=== PATIENT | male | born 1950 | race Caucasian/White ===

== ENCOUNTER 2016-12-29 06:35 | Day surgery (SDC) | payer MEDICARE, BC ==
[2016-12-29] VITALS (24 sets, daily range): BP systolic 97–126; BP diastolic 53–68; PULSE 55–77; TEMP 97.3
[~2016-12-29] VITALS: Ht 175.3 cm; Wt 78.4 kg
[~2016-12-29 06:35] MED LIST: ASPIR-LOW81 MG PO; ASPIRIN 32325 MG/TAB PO; ASPIRIN E.C. 8181 MG PO; B COMPLEX #11 TA1 PO; CARAFATE 1GM1 G PO; CLOPIDOGREL PO; CO ENZYME Q-1050 MG PO; COMPAZINE 110 MG/TAB PO; CRESTOR20 MG PO; FISH OIL1 IU PO; GAS-X80 MG PO; GEMFIBROZIL600 MG PO; GLUCOPHAGE500 MG/TAB PO; GLUCOSAMINE 1000 PO; IMDUR 30MG30 MG/TAB PO; JANUMET 1000 MG1 TA1 PO; JANUMXR1000-50 PO; LEVAQUIN 750MG750 M1 PO; LISINOPRIL10 MG PO; LOPID 600M600 MG/TAB PO; MASON NATURAL1000 MG PO; METFORMIN500 MG PO; NIASPAN500 MG PO; PERCOCET 325 MG1 TA2 PO; PRILOSEC 20MG20 MG PO; PRINIVIL10 MG PO; RESTORE PO; THE MEDICINE S200 M2 PO; TOPROL XL 25MG25 MG PO; TOPROL XL50 MG PO; XELODA500 MG PO; ZOCOR40 MG PO; blood pressure med
[2016-12-29] MEDS ORDERED: [UNRECOGNIZED DRUG - OTHER] PO (07:55)
[2016-12-29] MEDS ORDERED: OCUVITE1 TA1 PO (07:55)
[2016-12-29] MEDS ORDERED: B COMPLEX #11 TAB PO (07:56)
[2016-12-29] MEDS ORDERED: ZOCOR 20MG20 MG PO (07:56)
== END 2016-12-29 17:15 | disposition home or self-care (01) ==
LOC: SDCO 06:35
DX: N13.5 Crossing vessel and stricture of ureter without hydronephrosis (principal); I25.10 Atherosclerotic heart disease of native coronary artery without angina pectoris; Z85.038 Personal history of other malignant neoplasm of large intestine
CPT/HCPCS: C1769; C1887; C2617; J0690; J1100; J1885; J2250; J2270; J2405; J2704; J3010; J7030; Q9967

== ENCOUNTER 2017-01-03 12:21 | Outpatient (CLI) | payer MEDICARE, BC ==
[~2017-01-03 12:21] MED LIST changes: +B COMPLEX #11 TAB PO; +OCUVITE1 TA1 PO; +ZOCOR 20MG20 MG PO; +[UNRECOGNIZED DRUG - OTHER] PO
[2017-01-03] MEDS ORDERED: PERCOCET 325 MG1 TA3 PO (13:26)
[2017-01-03] MEDS ORDERED: PRINIVIL10 MG PO (13:32)
[2017-01-03] MEDS ORDERED: CRESTOR20 MG PO (13:34)
[2017-01-03] MEDS ORDERED: LOPID 600M600 MG/TAB PO (13:35)
[2017-01-03 14:37] LABS: MEAN CELL VOLUME 89 fl (80.0-100.0); MEAN CORPUSCULAR HGB CONC 33 g/dl (33.0-37.0); MEAN PLATELET VOLUME 9.8 fl (7.4-10.4); PLATELET COUNT 278 K/mm3 (130-400); RED BLOOD COUNT 4.09 M/mm3 (4.20-5.60); REDCELL DISTRIBUTION WIDTH-CV 15.8 % (11.5-14.5); WHITE BLOOD COUNT 3.8 K/mm3 (4.8-10.8)
[2017-01-03 14:38] LABS: INR 1.1 (0.8-3.0); PROTHROMBIN TIME 11.9 SECONDS (9.7-12.8)
[2017-01-03 14:42] LABS: CALCIUM 8.9 mg/dL (8.4-10.2); CREATININE, serum 0.5 mg/dL (0.66-1.25); POTASSIUM 3.5 mmol/L (3.4-5.0)
[2017-01-03 14:43] LABS: HEMATOCRIT 36.3 % (42.0-52.0); HEMOGLOBIN 11.9 g/dl (13.5-18.0); MEAN CORPUSCULAR HEMOGLOBIN 29 pg (27.0-31.0)
[2017-01-03 17:10] VITALS: BP 123/69; PULSE 66
[2017-01-03 19:17] VITALS: BP 120/70; PULSE 62
== END 2017-01-03 19:26 | disposition home or self-care (01) ==
LOC: EUO 12:21
PROVIDERS: Radiology Diagnostic Radiology
DX: Z46.6 Encounter for fitting and adjustment of urinary device (principal); N13.1 Hydronephrosis with ureteral stricture, not elsewhere classified
CPT/HCPCS: C1729; C1769; C1894; J0690; J2250; J3010; J7030; Q9967

== ENCOUNTER 2017-01-11 05:23 | Day surgery (SDC) | payer MEDICARE, BC ==
[~2017-01-11] VITALS: Ht 175.3 cm; Wt 78.3 kg
[2017-01-11] VITALS (8 sets, daily range): BP systolic 107–139; BP diastolic 53–67; PULSE 65–73; TEMP 98–98.2
[~2017-01-11 05:23] MED LIST changes: +PERCOCET 325 MG1 TA3 PO
[2017-01-11] MEDS ORDERED: CIPRO 500MG TA500 MG PO (06:48)
[2017-01-11] MEDS ORDERED: LEVSIN 0.10.125 MG/T PO (06:50)
[2017-01-11] MEDS ORDERED: THE MEDICINE S200 M2 PO (06:53)
[2017-01-11] MEDS ORDERED: ZOCOR 20MG20 MG PO (06:56)
[2017-01-11] MEDS ORDERED: [UNRECOGNIZED DRUG - OTHER] PO (06:58)
[2017-01-11] MEDS ORDERED: PRILOSEC 20MG20 MG PO (07:01)
[2017-01-11] MEDS ORDERED: MAGNESIUM250 M1 PO (07:05)
[2017-01-11] MEDS ORDERED: GENTLE LAXATIVE5 MG PO (07:06)
[2017-01-11] MEDS ORDERED: DOXYCYCLINE HY100 MG PO (07:06)
[2017-01-11] MEDS ORDERED: TUMS ULTRA ST1000 MG PO (07:07)
[2017-01-11] MEDS ORDERED: STOOL SOFTENER100 M2 PO (07:07)
== END 2017-01-11 11:28 | disposition home or self-care (01) ==
LOC: SDCO 05:23
DX: N13.5 Crossing vessel and stricture of ureter without hydronephrosis (principal); Z85.46 Personal history of malignant neoplasm of prostate; Z85.038 Personal history of other malignant neoplasm of large intestine; E11.42 Type 2 diabetes mellitus with diabetic polyneuropathy; E78.00 Pure hypercholesterolemia, unspecified; I25.10 Atherosclerotic heart disease of native coronary artery without angina pectoris
CPT/HCPCS: C1726; C1769; C2617; J0690; J1100; J2270; J2405; J2704; J3010; J7030; Q9967

== ENCOUNTER 2017-01-17 08:40 | Day surgery (SDC) | payer MEDICARE, BC ==
[~2017-01-17] VITALS: Ht 175.4 cm; Wt 77.3 kg
[~2017-01-17 08:40] MED LIST changes: +CIPRO 500MG TA500 MG PO; +DOXYCYCLINE HY100 MG PO; +GENTLE LAXATIVE5 MG PO; +LEVSIN 0.10.125 MG/T PO; +MAGNESIUM250 M1 PO; +STOOL SOFTENER100 M2 PO; +TUMS ULTRA ST1000 MG PO
[2017-01-17 10:45] VITALS: BP 116/51; PULSE 69; TEMP 97.5
[2017-01-17 12:22] VITALS: BP 118/81; PULSE 69; TEMP 98.3
== END 2017-01-17 13:29 | disposition home or self-care (01) ==
LOC: COL.CAR 08:40
DX: N13.1 Hydronephrosis with ureteral stricture, not elsewhere classified (principal); Z85.038 Personal history of other malignant neoplasm of large intestine
CPT/HCPCS: J1644

== ENCOUNTER 2017-05-16 11:51 | Day surgery (SDC) | payer MEDICARE, BC ==
[~2017-05-16] VITALS: Ht 175.3 cm; Wt 69.6 kg
[2017-05-16 12:17] VITALS: BP 125/65; PULSE 68; TEMP 97.7
[2017-05-16] MEDS ORDERED: MYRBETR50MG PO (12:21)
[2017-05-16] MEDS ORDERED: VESICARE10 MG PO (12:21)
[2017-05-16] MEDS ORDERED: ADRUCIL50 MG/ML IV (13:05)
== END 2017-05-16 14:45 | disposition home or self-care (01) ==
LOC: SDCO 11:51
DX: N13.1 Hydronephrosis with ureteral stricture, not elsewhere classified (principal); I25.10 Atherosclerotic heart disease of native coronary artery without angina pectoris; E78.00 Pure hypercholesterolemia, unspecified; I10 Essential (primary) hypertension; E11.42 Type 2 diabetes mellitus with diabetic polyneuropathy; K21.9 Gastro-esophageal reflux disease without esophagitis; C18.9 Malignant neoplasm of colon, unspecified; Z53.8 Procedure and treatment not carried out for other reasons; Z79.84 Long term (current) use of oral hypoglycemic drugs; Z95.5 Presence of coronary angioplasty implant and graft; Z96.0 Presence of urogenital implants; Z90.79 Acquired absence of other genital organ(s); Z85.46 Personal history of malignant neoplasm of prostate; Z82.49 Family history of ischemic heart disease and other diseases of the circulatory system
CPT/HCPCS: J0690; J1100; J1885; J2405; J2704; J3010; J7030

== ENCOUNTER 2017-05-23 11:54 | Day surgery (SDC) | payer MEDICARE, BC ==
[~2017-05-23] VITALS: Ht 175.3 cm; Wt 69.5 kg
[~2017-05-23 11:54] MED LIST changes: +ADRUCIL50 MG/ML IV; +MYRBETR50MG PO; +VESICARE10 MG PO
[2017-05-23 13:29] VITALS: BP 135/74; PULSE 73; TEMP 98.2
[2017-05-23 16:10] VITALS: BP 115/80; PULSE 73; TEMP 98
[2017-05-23 16:25] VITALS: BP 128/77; PULSE 75
[2017-05-23 16:40] VITALS: BP 115/86; PULSE 74
== END 2017-05-23 17:11 | disposition home or self-care (01) ==
LOC: SDCO 11:54
DX: N13.1 Hydronephrosis with ureteral stricture, not elsewhere classified (principal); I25.10 Atherosclerotic heart disease of native coronary artery without angina pectoris; C18.9 Malignant neoplasm of colon, unspecified; E78.00 Pure hypercholesterolemia, unspecified; I10 Essential (primary) hypertension; K21.9 Gastro-esophageal reflux disease without esophagitis; E11.42 Type 2 diabetes mellitus with diabetic polyneuropathy; Z95.5 Presence of coronary angioplasty implant and graft; Z90.79 Acquired absence of other genital organ(s); Z79.84 Long term (current) use of oral hypoglycemic drugs; Z85.46 Personal history of malignant neoplasm of prostate; Z83.511 Family history of glaucoma; Z82.49 Family history of ischemic heart disease and other diseases of the circulatory system
CPT/HCPCS: C1769; C2617; J0690; J1100; J2405; J2704; J3010; J7030

== ENCOUNTER → 2017-07-02 | Outpatient (CLI) | payer MEDICARE, BC | LOC: COL.RAD 08:00 | DX: C18.9 Malignant neoplasm of colon, unspecified (principal); R59.0 Localized enlarged lymph nodes; J84.9 Interstitial pulmonary disease, unspecified; R18.8 Other ascites; E27.8 Other specified disorders of adrenal gland; E11.9 Type 2 diabetes mellitus without complications; Z96.0 Presence of urogenital implants | CPT/HCPCS: Q9967 ==

== ENCOUNTER 2017-08-30 05:26 | Day surgery (SDC) | payer MEDICARE, BC ==
[~2017-08-30] VITALS: Ht 175.3 cm; Wt 70.2 kg
[2017-08-30 06:00] VITALS: BP 126/71; PULSE 66; TEMP 97.4
[2017-08-30] MEDS ORDERED: GLUCOPHAGE500 MG/TAB PO (06:51)
[2017-08-30 08:30] VITALS: BP 114/72; PULSE 66
[2017-08-30 08:45] VITALS: BP 128/78; PULSE 81
[2017-08-30 09:00] VITALS: BP 97/74; PULSE 70
[2017-08-30 09:15] VITALS: BP 120/69; PULSE 72
[2017-08-30 10:06] VITALS: BP 131/74; PULSE 71; TEMP 98.6
== END 2017-08-30 09:33 | disposition home or self-care (01) ==
LOC: SDCO 05:26
DX: N13.5 Crossing vessel and stricture of ureter without hydronephrosis (principal); C18.9 Malignant neoplasm of colon, unspecified; I25.10 Atherosclerotic heart disease of native coronary artery without angina pectoris; E11.42 Type 2 diabetes mellitus with diabetic polyneuropathy; E78.00 Pure hypercholesterolemia, unspecified; I10 Essential (primary) hypertension; K21.9 Gastro-esophageal reflux disease without esophagitis; Z90.79 Acquired absence of other genital organ(s); Z95.5 Presence of coronary angioplasty implant and graft; Z79.84 Long term (current) use of oral hypoglycemic drugs; Z85.46 Personal history of malignant neoplasm of prostate; Z87.891 Personal history of nicotine dependence; Z82.49 Family history of ischemic heart disease and other diseases of the circulatory system
CPT/HCPCS: C1769; J0690; J1100; J1644; J1940; J2405; J2704; J3010; J7120

== ENCOUNTER 2017-12-31 12:14 | Inpatient (IN) | payer MEDICARE, BC ==
[~2017-12-31] VITALS: Ht 175.3 cm; Wt 50.0 kg
[~2017-12-31 12:14] MED LIST changes: +CEFTIN 250250 MG/TAB PO; +DOXYCYCLINE 10100 MG PO; +LOMOTIL 0.025 M1 TAB PO; +MAG-OX 400400 MG/TAB PO; +ULTRAM 50MG TAB50 MG PO; +ZOVIRAX400 MG PO
[2017-12-31 13:36] LABS: BASO % 0.4 % (0.0-2.0); EOS # 0.1 (0.0-0.7); GRAN # 8.4 (1.4-6.5); GRAN % 84.5 % (42.2-75.2); HEMATOCRIT 37.1 % (42.0-52.0); HEMOGLOBIN 12.2 g/dl (13.5-18.0); LYMPH # 0.4 (1.2-3.4); LYMPH % 4.2 % (20.0-51.0); MEAN CELL VOLUME 88 fl (80.0-100.0); MEAN CORPUSCULAR HEMOGLOBIN 29 pg (27.0-31.0); MEAN CORPUSCULAR HGB CONC 33 g/dl (33.0-37.0); MEAN PLATELET VOLUME 9.3 fl (7.4-10.4); MONO # 0.9 (0.1-0.6); MONO % 9.4 % (1.7-9.3); PLATELET COUNT 361 K/mm3 (130-400); RED BLOOD COUNT 4.22 M/mm3 (4.20-5.60); REDCELL DISTRIBUTION WIDTH-CV 15.2 % (11.5-14.5)
[2017-12-31 13:57] LABS: ALBUMIN 2.3 gm/dL (3.5-5.0); BILIRUBIN,TOTAL 0.9 mg/dL (0.0-1.0); C-REACTIVE PROTEIN 5.1 mg/dL (0.0-0.9); CALCIUM 7.9 mg/dL (8.4-10.2); CREATININE, serum 0.71 mg/dL (0.66-1.25); POTASSIUM 3.1 mmol/L (3.4-5.0); TOTAL PROTEIN 5.1 gm/dL (6.4-8.2)
[2017-12-31 16:14] LABS: COLLECTION METHOD CATHETER
[2017-12-31 16:23] LABS: BUDDING YEAST Present /hpf; MUCOUS Present /lpf; PH 7 (5-8); SQUAMOUS EPITHELIAL 0-2 /hpf; URINE APPEARANCE Cloudy; URINE BACTERIA None Seen /hpf; URINE BILIRUBIN Negative (NEGATIVE); URINE BLOOD 3+ (NEGATIVE); URINE COLOR Amber; URINE GLUCOSE Negative (NEGATIVE); URINE KETONE 2+ (NEGATIVE); URINE LEUKOCYTE ESTERASE 3+ (NEGATIVE); URINE NITRATE Positive (NEGATIVE); URINE PROTEIN(semi-quant) 2+ (NEGATIVE); URINE RBC >50 /hpf; URINE UROBILINOGEN >=4.0 mg/dL (NEGATIVE)
[2017-12-31 18:29] VITALS: BP 146/85; PULSE 94; TEMP 98.3
[2017-12-31 19:11] VITALS: BP 138/76; PULSE 98; TEMP 98.5
[2017-12-31] MEDS ORDERED: XANAX 0.5MG0.5 MG PO (23:16)
[2017-12-31 23:34] VITALS: BP 114/66; PULSE 98; TEMP 98.4
[2018-01-01 04:11] VITALS: BP 127/82; PULSE 86; TEMP 97.5
[2018-01-01 06:02] LABS: BASO % 0.5 % (0.0-2.0); EOS # 0.2 (0.0-0.7); EOS % 1.9 % (0-4.0); GRAN # 6.6 (1.4-6.5); GRAN % 76.9 % (42.2-75.2); LYMPH # 0.7 (1.2-3.4); LYMPH % 7.9 % (20.0-51.0); MEAN CELL VOLUME 88 fl (80.0-100.0); MEAN CORPUSCULAR HGB CONC 33 g/dl (33.0-37.0); MEAN PLATELET VOLUME 9.6 fl (7.4-10.4); MONO % 12.1 % (1.7-9.3); PLATELET COUNT 335 K/mm3 (130-400); RED BLOOD COUNT 3.62 M/mm3 (4.20-5.60); REDCELL DISTRIBUTION WIDTH-CV 15.3 % (11.5-14.5)
[2018-01-01 06:08] LABS: HEMATOCRIT 31.7 % (42.0-52.0); HEMOGLOBIN 10.6 g/dl (13.5-18.0); MEAN CORPUSCULAR HEMOGLOBIN 29 pg (27.0-31.0)
[2018-01-01 06:37] LABS: BILIRUBIN,TOTAL 0.6 mg/dL (0.0-1.0); CALCIUM 7.5 mg/dL (8.4-10.2); CREATININE, serum 0.62 mg/dL (0.66-1.25); TOTAL PROTEIN 4.6 gm/dL (6.4-8.2)
[2018-01-01 08:01] VITALS: BP 126/66; PULSE 80; TEMP 97.9
[2018-01-01 11:56] VITALS: BP 121/70; PULSE 85; TEMP 98.1
[2018-01-01 15:57] VITALS: BP 116/73; PULSE 89; TEMP 97.8
[2018-01-02] MEDS ORDERED: STOOL SOFTENER100 M2 PO (07:50)
[2018-01-02] MEDS ORDERED: MIRALAX510G PO (07:50)
[2018-01-02] MEDS ORDERED: ZOFRAN ODT4 MG PO (07:51)
[2018-01-02] MEDS ORDERED: ROXANOL 20MG20 MG/ML SL (07:52)
[2018-01-02] MEDS ORDERED: PERCOCET 325 MG1 TA3 PO (07:52)
[2018-01-02] MEDS ORDERED: ULTRAM 50MG TAB50 MG PO (07:52)
[2018-01-02] MEDS ORDERED: XANAX 0.5MG0.5 MG PO (07:52)
[2018-01-02] MEDS ORDERED: TRANSDERM-0.5 MG/21 TD (07:52)
[2018-01-02] MEDS ORDERED: BACTRIM DS 8001 TAB PO (08:51)
== END 2018-01-02 12:46 | disposition hospice, home (50) | DRG 638 ==
LOC: COL.ER 12:14 → MEDICAL 15:47
PROVIDERS: Emergency Medicine; Physician Assistant
DX: E11.649 Type 2 diabetes mellitus with hypoglycemia without coma (principal); E46 Unspecified protein-calorie malnutrition; C18.8 Malignant neoplasm of overlapping sites of colon; C78.7 Secondary malignant neoplasm of liver and intrahepatic bile duct; Z51.5 Encounter for palliative care; C78.01 Secondary malignant neoplasm of right lung; C78.02 Secondary malignant neoplasm of left lung; N39.0 Urinary tract infection, site not specified; C79.11 Secondary malignant neoplasm of bladder; J90 Pleural effusion, not elsewhere classified; E87.6 Hypokalemia; I25.10 Atherosclerotic heart disease of native coronary artery without angina pectoris; Z95.5 Presence of coronary angioplasty implant and graft; Z85.46 Personal history of malignant neoplasm of prostate; B95.7 Other staphylococcus as the cause of diseases classified elsewhere
CPT/HCPCS: 99223-AI; 99233-AI; 99239; J0692; J0696; J1650; J2060; J2212; J2270; J2405; J3475; J3480; J7030; J7070; Q9967